=== PATIENT | female | born 1980 | race American Indian/Alaskan Native ===

== ENCOUNTER 2016-12-16 04:22 | Emergency (ER) | payer OTHER ==
[2016-12-16 04:23] VITALS: BMI 28.1
[2016-12-16] MEDS ORDERED: Sodium Chloride 0.9% 1,000 ML IV ONE (04:40)
[2016-12-16] MEDS ORDERED: MethylPREDNISolone 40 mg Vial IVP STA (04:40)
[2016-12-16] MEDS ORDERED: DiphenhydrAMINE 50 mg/ml Inj IVP STA (04:40)
[2016-12-16] MEDS ORDERED: DiphenhydrAMINE 50 mg/ml Inj ONE (04:46)
[2016-12-16] MEDS ORDERED: Sodium Chloride 0.9% 1,000 ML ONE (04:46)
[2016-12-16] MEDS ORDERED: MethylPREDNISolone 40 mg Vial ONE (04:48)
--- NOTE | 2016-12-16 05:28 | C.PDOC ---
History Of Present Illness 35 y/o female presents to ED who states she took an [place]ef[place] for cold symptoms earlier tonight and then developed an itchy rash and itchy throat 2 hours afterward. Denies shortness of breath, wheezing, chest pain, tongue or throat swelling. Denies fever or recent travel. Time Seen by Provider: 12/16/16 04:35 Chief Complaint (Nursing): Allergic Reaction History Per: Patient History/Exam Limitations: no limitations Onset/Duration Of Symptoms: Hrs Current Symptoms Are (Timing): Still Present Possible Cause: Medication Associated Symptoms: Skin Rash, Itching. denies: Dyspnea, Trouble Swallowing, Chest Pain Home/EMS Treatment: None Recent travel outside of the [place]: No Past Medical History Reviewed: Historical Data, Nursing Documentation, Vital Signs Vital Signs: Last Vital Signs Temp 98.3 F 12/16/16 06:35 Pulse 74 12/16/16 06:35 Resp 16 12/16/16 06:35 BP 108/65 12/16/16 06:35 Pulse Ox 98 12/16/16 06:35 - Medical History PMH: No Chronic Diseases Family History: States: Unknown Family Hx - Social History Hx Tobacco Use: No Hx Alcohol Use: No Hx Substance Use: No - Immunization History Hx Tetanus Toxoid Vaccination: No Hx Influenza Vaccination: Yes Hx Pneumococcal Vaccination: No Review Of Systems Except As Marked, All Systems Reviewed And Found Negative. Constitutional: Negative for: Fever, Chills ENT: Positive for: Other (throat itchiness). Negative for: Throat Pain Cardiovascular: Negative for: Chest Pain Respiratory: Negative for: Cough, Shortness of Breath, Wheezing Gastrointestinal: Negative for: Nausea, Vomiting Skin: Positive for: Rash Neurological: Negative for: Headache, Dizziness Physical Exam - Physical Exam Appears: Non-toxic, No Acute Distress Skin: Warm, Dry, Rash (erythema, urticarial rash diffusely) Head: Atraumatic, Normacephalic Eye(s): bilateral: Normal Inspection, PERRL, EOMI Oral Mucosa: Moist Tongue: Normal Appearing, No Swelling Lips: Normal Appearing, No Swelling Throat: Normal, No Erythema, No Exudate, No Drooling Neck: Supple Chest: Symmetrical Cardiovascular: Rhythm Regular, No Murmur Respiratory: Normal Breath Sounds, No Rales, No Rhonchi, No Stridor, No Wheezing Gastrointestinal/Abdominal: Soft, No Tenderness Back: Normal Inspection Extremity: Normal ROM, Capillary Refill (< 2 sec. ) Neurological/Psych: Oriented x3, Normal Speech, Normal Cognition ED Course And Treatment O2 Sat by Pulse Oximetry: 97 (RA) Pulse Ox Interpretation: Normal Progress Note: Treated with Benadryl, Pepcid, and prednisone. IVFs administered. On reassessment, patient is resting comfortably, and is in no acute distress. Patient reports improvement of rash. Lungs remain CTA, with no intraoral swelling. Patient instructed to follow up with clinic/PMD within 1-2 days. Disposition - Disposition Referrals: [facility] [Outside] Disposition: HOME/ ROUTINE Disposition Time: 06:16 Condition: GOOD Additional Instructions: Follow up with the medical doctor within 1-2 days. Return if worsened. Prescriptions: DiphenhydrAMINE [Benadryl] 25 mg PO Q4H PRN #30 cap PRN Reason: Itching / Pruritus Famotidine [Pepcid] 20 mg PO BID #20 tab predniSONE [Prednisone] 20 mg PO BID #10 tab Instructions: Urticaria (ED) - Clinical Impression Clinical Impression: Allergic urticaria - PA / MAPPING EDITOR / Resident Statement MD/DO has reviewed & agrees with the documentation as recorded. - Scribe Statement The provider has reviewed the documentation as recorded by the Alexsandra Brooks Provider Scribe Attestation: All medical record entries made by the Alexsandra were at my direction and personally dictated by me. I have reviewed the chart and agree that the record accurately reflects my personal performance of the history, physical exam, medical decision making, and the department course for this patient. I have also personally directed, reviewed, and agree with the discharge instructions and disposition.
[2016-12-16 06:35] VITALS: BP 108/65; PULSE 74; RESP 16; TEMP 98.3
[2016-12-17 19:41] VITALS: O2SAT 97
== END 2016-12-16 07:19 | disposition home or self-care (01) ==
LOC: C.ER 04:22
DX: L50.0 Allergic urticaria (principal)
CPT/HCPCS: 96361; 96374; 96375; 99284; J1200; J2920; J7040

== ENCOUNTER 2017-06-18 15:30 | Emergency (ER) | payer MEDICAID ==
[2017-06-18 15:30] VITALS: BMI 28.1
[2017-06-18] MEDS ORDERED: cefTRIAXone (Rocephin) 250 mg Inj IM STA (15:46)
--- NOTE | 2017-06-18 15:51 | C.PDOC ---
History Of Present Illness 36 year old female presents to the ER for treatment after her cultures were positive for Chlamydia. Patient was seen on 06/02/17 for vaginal discharge and had a swab for GC/Chlamydia done but was not treated for it. Denies complaints at this time. Time Seen by Provider: 06/18/17 15:42 Chief Complaint (Nursing): Medical Clearance History Per: Patient History/Exam Limitations: no limitations Onset/Duration Of Symptoms: Days Current Symptoms Are (Timing): Still Present Recent travel outside of the [place]: No Past Medical History Reviewed: Historical Data, Nursing Documentation, Vital Signs Vital Signs: Last Vital Signs Temp 98.1 F 06/18/17 16:37 Pulse 64 06/18/17 16:37 Resp 18 06/18/17 16:37 BP 115/71 06/18/17 16:37 Pulse Ox 98 06/18/17 16:37 - Medical History PMH: Sexually Transmitted Disease Surgical History: No Surg Hx Family History: States: Unknown Family Hx - Social History Hx Tobacco Use: No Hx Alcohol Use: No Hx Substance Use: No - Immunization History Hx Tetanus Toxoid Vaccination: No Hx Influenza Vaccination: Yes Hx Pneumococcal Vaccination: No Review Of Systems Constitutional: Negative for: Fever, Chills Gastrointestinal: Negative for: Nausea, Vomiting, Abdominal Pain, Diarrhea Genitourinary: Negative for: Vaginal Discharge, Pelvic Pain Physical Exam - Physical Exam Appears: Non-toxic, No Acute Distress Skin: Normal Color, Warm, Dry Head: Atraumatic, Normacephalic Oral Mucosa: Moist Chest: Symmetrical, No Tenderness Cardiovascular: Rhythm Regular Respiratory: Normal Breath Sounds, No Rales, No Rhonchi, No Wheezing Gastrointestinal/Abdominal: Soft, No Tenderness Neurological/Psych: Oriented x3, Normal Speech, Normal Cognition ED Course And Treatment O2 Sat by Pulse Oximetry: 98 (Room air) Pulse Ox Interpretation: Normal Progress Note: Patient started on rocephin and zithromax, will discharge with instructions to follow up with PMD for further management. Disposition - Disposition Disposition: HOME/ ROUTINE Disposition Time: 15:50 Condition: STABLE Additional Instructions: Follow up with PMD within 1-2 days. Return to Ed if feel worse. Instructions: Chlamydia (ED) Forms: [employer] (Greenlandic) - Clinical Impression Clinical Impression: Chlamydial infection, unspecified - Scribe Statement The provider has reviewed the documentation as recorded by the Scribe Jeffrey Gan All medical record entries made by the Serenityibjoe were at my direction and personally dictated by me. I have reviewed the chart and agree that the record accurately reflects my personal performance of the history, physical exam, medical decision making, and the department course for this patient. I have also personally directed, reviewed, and agree with the discharge instructions and disposition.
[2017-06-18 15:52] VITALS: O2SAT 98
[2017-06-18 16:38] VITALS: BP 115/71; PULSE 64; RESP 18; TEMP 98.1
== END 2017-06-18 16:42 | disposition home or self-care (01) ==
LOC: C.ER 15:30
DX: A74.9 Chlamydial infection, unspecified (principal)
CPT/HCPCS: 96372; 99282; J0696

== ENCOUNTER 2018-05-18 10:00 | Emergency (ER) | payer OTHER, MEDICAID ==
[2018-05-18 10:00] VITALS: BMI 28.1
[2018-05-18 10:16] VITALS: O2SAT 100
[2018-05-18] MEDS ORDERED: Lidocaine 5% Patch TD STA (10:37)
[2018-05-18] MEDS ORDERED: Lidocaine 5% Patch TD ONE (10:56)
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
[2018-05-18 11:11] VITALS: BP 122/70; PULSE 65; RESP 16; TEMP 98.3
--- NOTE | 2018-05-18 11:54 | RAD ---
Date of service: 05/18/2018 PROCEDURE: Cervical Spine Radiographs. HISTORY: Pain. COMPARISON: 11/08/2016. FINDINGS: BONES: There is straightening of the cervical spine with loss of normal lumbar lordosis. There is normal alignment of the cervical vertebral bodies. Vertebral height is normal. Bone mineralization is normal. There is no acute fracture or traumatic anterior listhesis. The craniocervical junction is normal. The atlantoaxial joint normal. DISC SPACES: There is mild degenerative disc disease at C5-6 and C6-7 with mild anterior spurring, reduced disc heights and facet arthropathy. SOFT TISSUES: Normal. No prevertebral soft tissue swelling. OTHER FINDINGS: None. IMPRESSION: Mild degenerative disc disease at C5-6 and C6-7, worse at C5-6. Straightening of the cervical spine may be positional or related to muscle spasm.
== END 2018-05-18 11:10 | disposition home or self-care (01) ==
LOC: C.ER 10:00
DX: S13.4XXA Sprain of ligaments of cervical spine, initial encounter (principal); V89.2XXA Person injured in unspecified motor-vehicle accident, traffic, initial encounter; H00.026 Hordeolum internum left eye, unspecified eyelid